=== PATIENT | male | born 1995 | race Caucasian/White ===

== ENCOUNTER 2018-08-10 08:04 | Outpatient (CLI) | payer OTHER ==
[2018-08-10] MEDS ORDERED: Gadobenate Dimeglumine 529 MG/1 ML (20ML VIAL) ONE (09:00)
[2018-08-10] MEDS ORDERED: Lidocaine 1% PF 10 ML AMP ONE (09:00)
[2018-08-10] MEDS ORDERED: EPINEPHrine 1 MG/ML AMP ONE (09:00)
[2018-08-10] MEDS ORDERED: Iopamidol 300 61% 50 ML VIAL FS ONE (09:00)
--- NOTE | 2018-08-10 11:48 | RAD ---
RIGHT SHOULDER ARTHROGRAM: History: Recurrent shoulder dislocation. Comparison: None. Exposure: 6.2 mGy*cm^2. 0.3 minutes. FINDINGS: Initial three views of the right shoulder does not demonstrate fracture or dislocation. Glenohumeral joint space is preserved. Successful right shoulder arthrogram. A total of 15 cc of contrast mixture was introduced into the di sc space. No immediate or post procedure complication. Technique: Consent obtained for a right shoulder arthrogram. Right shoulder was prepped and draped in sterile fa shion. 1% Lidocaine, buffered with sodium bicarbonate used for local anesthesia. Under fluoroscopic g uidance, 22 gauge spinal needle was advanced into the joint space. A total of 15 cc of contrast mixtu re was administered into the joint space. Patient tolerated the procedure well. No immediate or post procedure complication. IMPRESSION: Successful right shoulder arthrogram. POS: [facility]
--- NOTE | 2018-08-10 13:29 | MRI ---
MRI ARTHROGRAM OF THE RIGHT SHOULDER: INDICATION: History of recurrent right shoulder dislocation; the initial injury occurred by while playing basketb all and the patient's arm was forced down and away from the body approximately 2 years ago. Recent d islocations have occurred while throwing objects. TECHNIQUE: Multiplanar, multisequence MR images were obtained of the right shoulder following intraarticular adm inistration of a dilute Gadolinium solution. Please see the separately dictated right shoulder arthr ogram for details concerning the injection technique. Comparisons are made with the radiographs from the right shoulder arthrogram dated 08/10/18. FINDINGS: There is a focal full-thickness articular cartilage defect involving the anterior inferior glenoid me asuring 5 mm. There is an intraarticular body seen within the superior medial aspect of the glenohum eral joint near the subcoracoid recess measuring 7 mm on image 20 of series 7. There is a partial th ickness tear involving the anterior inferior glenoid labrum at the attachment site of the anterior ba nd of the inferior glenohumeral ligament. No additional labral tear is evident. The rotator cuff is intact. The biceps anchor complex and biceps tendon are normal appearing. Subacromial subdeltoid s pace is normal-appearing. The AC joint is normal appearing. No os acromiale is present. There is a type II acromion. No muscular atrophy is present. IMPRESSION: 1. GLAD lesion involving the anterior inferior aspect of the glenoid. 2. Intraarticular body seen near the subcoracoid recess measuring 7 mm in size. POS: [facility]
== END 2018-08-10 08:05 | disposition home or self-care (01) ==
LOC: RAD 08:04
DX: M24.411 Recurrent dislocation, right shoulder (principal); M75.91 Shoulder lesion, unspecified, right shoulder
CPT/HCPCS: 23350; A9579; J0171; J7050